=== PATIENT | male | born 1960 | race Caucasian/White ===

== ENCOUNTER 2019-03-29 08:23 | Emergency (ER) | payer MEDICAID ==
[~2019-03-29] VITALS: Ht 175.3 cm; Wt 112.0 kg
[2019-03-29 08:33] VITALS: BP 173/101
--- NOTE | 2019-03-29 09:07 | NUR ---
PT STATES HERE FOR RIGHT ANKLE PAIN POST FALL ON FRIDAY, SWELLING NOTED, PT STATES PAIN WITH MOVEMENT. DENIES MEDICAL HX AND DAILY MEDICATIONS.
[2019-03-29] MEDS ORDERED: IBUPROFEN 200 MG TABLET ONE (09:29)
[2019-03-29] MEDS ORDERED: IBUPROFEN 600 MG TABLET PO ONE (09:30)
[2019-03-29 10:22] LABS: BASOPHILS # (AUTO) 0.04 x10^3/uL (0-0.1); BASOPHILS % (AUTO) 0 % (0-1); EOSINOPHILS # (AUTO) 0.07 x10^3/uL (0-0.4); EOSINOPHILS % (AUTO) 1 % (1-7); LYMPHOCYTES # (AUTO) 1.85 x10^3/uL (1-3.4); LYMPHOCYTES % (AUTO) 18 % (22-44); MD NO; MEAN CORPUSCULAR HEMOGLOBIN 31.4 pg (27.5-34.5); MEAN CORPUSCULAR HGB CONC 33.3 g/dL (33.2-36.2); MEAN CORPUSCULAR VOLUME 94.2 fL (81-97); MEAN PLATELET VOLUME 7.8 fL (7.4-10.4); MONOCYTES # (AUTO) 0.62 x10^3/uL (0.2-0.8); MONOCYTES % (AUTO) 6 % (2-9); NEUTROPHILS # (AUTO) 7.54 x10^3/uL (1.8-6.8); NEUTROPHILS % (AUTO) 75 % (42-75); PLATELET COUNT 273 x10^3/uL (130-400); RED BLOOD COUNT 5.36 x10^6/uL (4.38-5.82); RED CELL DISTRIBUTION WIDTH 13.1 % (9.4-14.8)
[2019-03-29 10:31] LABS: ANION GAP 4 mmol/L (5-15); CALCIUM 8.8 mg/dL (8.5-10.1); CHLORIDE 106 mmol/L (98-107); CREATININE 1.21 mg/dL (0.7-1.3)
--- NOTE | 2019-03-29 11:37 | NUR ---
Patient/Caregiver given discharge instructions and they have confirmed that they understand the instructions. Patient ambulatory with steady gait.
== END 2019-03-29 11:39 | disposition home or self-care (01) ==
LOC: ED 11:33
DX: S93.601A Unspecified sprain of right foot, initial encounter (principal); L03.115 Cellulitis of right lower limb; B35.3 Tinea pedis; Z90.49 Acquired absence of other specified parts of digestive tract; M79.671 Pain in right foot; F17.200 Nicotine dependence, unspecified, uncomplicated; X50.1XXA Overexertion from prolonged static or awkward postures, initial encounter; Y93.89 Activity, other specified; Y92.410 Unspecified street and highway as the place of occurrence of the external cause; Y99.8 Other external cause status
CPT/HCPCS: 36415; 80048; 85025; 99284

== ENCOUNTER 2019-05-13 15:28 | Emergency (ER) | payer MEDICAID ==
[~2019-05-13] VITALS: Ht 175.3 cm; Wt 111.2 kg
[2019-05-13 15:54] VITALS: BP 143/96
[2019-05-13] MEDS ORDERED: CLINDAMYCIN 300 MG CAPSULE PO ONE (17:30)
[2019-05-13] MEDS ORDERED: IBUPROFEN 200 MG TABLET PO ONE (17:30)
[2019-05-13] MEDS ORDERED: IBUPROFEN 200 MG TABLET ONE ×2 (17:30→17:36)
[2019-05-13] MEDS ORDERED: CLINDAMYCIN 300 MG CAPSULE ONE (17:31)
== END 2019-05-13 17:41 | disposition home or self-care (01) ==
LOC: ED 17:15
DX: L03.115 Cellulitis of right lower limb (principal); B35.3 Tinea pedis; F17.200 Nicotine dependence, unspecified, uncomplicated
CPT/HCPCS: 99283

== ENCOUNTER 2019-06-09 14:28 | Inpatient (IN) | payer MEDICAID ==
[~2019-06-09] VITALS: Ht 175.3 cm; Wt 110.0 kg
[2019-06-09] MEDS: NITROGLYCERIN SINGLE TAB 0.4 MG SL PRN ×3 (14:44→14:52)
--- NOTE | 2019-06-09 14:50 | NUR ---
[id number] code cardiac paged / cardiology paged and in department/ chemical laboratory scientist called and are aware of pt
--- NOTE | 2019-06-09 14:50 | NUR ---
THIS IS A 58 YEAR OLD MALE WHO C/O OF RIGHT UPPER CHEST PRESSURE RADIATING TO JAW AND SHOULDERS FOR ABOUT 15 MINUTES. PT DENIES ANY MEDICAL HISTORY. PT IS HAVING A DE, CODE CARDIAC CALLED. PT PLACED ON AIRPORT OPERATIONS OFFICER, ST ELEVATION, IVS STARTED, CONTINOUS SP02 AT 97%, AND CYCLE VS. CONSENT SIGNED.
[2019-06-09] MEDS ORDERED: TICAGRELOR 90 MG TABLET ONE (14:51)
[2019-06-09] MEDS ORDERED: LIDOCAINE 1%, 20ML ONE (14:51)
[2019-06-09] MEDS ORDERED: MIDAZOLAM 1 MG/ML, 5ML ONE (14:51)
[2019-06-09] MEDS ORDERED: BIVALIRUDIN 250 MG ONE ×2 (14:51→15:30)
[2019-06-09] MEDS ORDERED: FENTANYL PF 100 MCG/2ML ONE (14:51)
--- NOTE | 2019-06-09 14:54 | NUR ---
PT TO SPIKE MACHINE OPERATOR
[2019-06-09] MEDS ORDERED: METOPROLOL 1 MG/ML, 5ML IVPush ONE (15:00)
[2019-06-09] MEDS ORDERED: SODIUM CHLORIDE FLUSH 10ML SYR IVF PRN (15:00)
[2019-06-09] MEDS ORDERED: ASPIRIN 325 MG TABLET EC ONE (15:03)
[2019-06-09] MEDS ORDERED: METOPROLOL 1 MG/ML, 5ML ONE (15:04)
--- NOTE | 2019-06-09 15:05 | NUR ---
PT REC 3 SL NITRO IN ED AND 5 MG METOPROLOL ENROUTE TO CATH PT REPORTS NO CP SKIN IS NOW WARM AND DRY REMAINS A04
[2019-06-09 15:06] LABS: BASOPHILS # (AUTO) 0.05 x10^3/uL (0-0.1); BASOPHILS % (AUTO) 0 % (0-1); EOSINOPHILS # (AUTO) 0.15 x10^3/uL (0-0.4); EOSINOPHILS % (AUTO) 1 % (1-7); LYMPHOCYTES # (AUTO) 2.79 x10^3/uL (1-3.4); LYMPHOCYTES % (AUTO) 22 % (22-44); MD NO; MEAN CORPUSCULAR HGB CONC 32.7 g/dL (33.2-36.2); MEAN CORPUSCULAR VOLUME 94.9 fL (81-97); MEAN PLATELET VOLUME 7.9 fL (7.4-10.4); MONOCYTES # (AUTO) 0.94 x10^3/uL (0.2-0.8); MONOCYTES % (AUTO) 7 % (2-9); NEUTROPHILS # (AUTO) 8.89 x10^3/uL (1.8-6.8); NEUTROPHILS % (AUTO) 69 % (42-75); PLATELET COUNT 305 x10^3/uL (130-400); RED BLOOD COUNT 5.87 x10^6/uL (4.38-5.82); RED CELL DISTRIBUTION WIDTH 12.8 % (9.4-14.8)
--- NOTE | 2019-06-09 15:06 | NUR ---
LATE NOTE, PT STATES HE TOOK ASA PRIOR, WHEN UP TO PLUG WIRER, PT STATES HE TOOK AN ALIVE. PLUG WIRER NOTIFIED.
[2019-06-09 15:45] VITALS: BP 122/83
[2019-06-09 15:45] LABS: INTERNATIONAL NORMALIZED RATIO 0.89 (0.93-1.1); PROTHROMBIN TIME 9.4 Seconds (9.6-11.5)
[2019-06-09] MEDS ORDERED: BIVALIRUDIN 250 MG in SODIUM CHLORIDE 0.9% 50 ML IV SCH (16:00)
[2019-06-09] MEDS ORDERED: GLUCAGON 1 MG IM PRN (16:30)
[2019-06-09] MEDS: INSULIN LISPRO 100 UNITS/ML, PEN SQ-INSULIN SCH ×2 (16:30→21:38)
[2019-06-09] MEDS ORDERED: hydrALAzine 20 MG/ML, 1ML IV PRN (16:30)
[2019-06-09] MEDS ORDERED: DEXTROSE 4 GM TAB.CHEW PO PRN (16:30)
[2019-06-09] MEDS ORDERED: ONDANSETRON 2MG/ML, 2ML IVPush PRN (16:30)
[2019-06-09] MEDS ORDERED: DEXTROSE 50%, 50ML SYRINGE IVPush PRN (16:30)
[2019-06-09 17:13] LABS: FREE T4 (FREE THYROXINE) 0.86 ng/dL (0.76-1.46)
[2019-06-09] MEDS: SODIUM CHLORIDE 0.9% 1,000 ML IV SCH (17:13)
[2019-06-09 17:26] LABS: HEMOGLOBIN A1C 6.6 % (4.2-6.3)
[2019-06-09] MEDS: ACETAMINOPHEN 325 MG TABLET PO PRN (19:03)
[2019-06-09] MEDS: SODIUM CHLORIDE FLUSH 10ML SYR IVF SCH (21:30)
[2019-06-09] MEDS: ATORVASTATIN 80 MG TABLET PO SCH (21:30)
[2019-06-09] MEDS: TICAGRELOR 90 MG TABLET PO SCH (21:30)
[2019-06-09] MEDS: FAMOTIDINE 20 MG TABLET PO SCH (21:30)
[2019-06-09] MEDS: NICOTINE 7 MG/24 HR PATCH.TD24 TD SCH (21:30)
[2019-06-10] MEDS: SODIUM CHLORIDE 0.9% 1,000 ML IV SCH ×2 (00:57→07:38)
[2019-06-10 03:33] LABS: BASOPHILS # (AUTO) 0.03 x10^3/uL (0-0.1); BASOPHILS % (AUTO) 0 % (0-1); EOSINOPHILS # (AUTO) 0.18 x10^3/uL (0-0.4); EOSINOPHILS % (AUTO) 2 % (1-7); LYMPHOCYTES # (AUTO) 2.12 x10^3/uL (1-3.4); LYMPHOCYTES % (AUTO) 18 % (22-44); MD NO; MEAN CORPUSCULAR HEMOGLOBIN 31.7 pg (27.5-34.5); MEAN CORPUSCULAR HGB CONC 33.4 g/dL (33.2-36.2); MEAN CORPUSCULAR VOLUME 94.9 fL (81-97); MONOCYTES # (AUTO) 0.73 x10^3/uL (0.2-0.8); MONOCYTES % (AUTO) 6 % (2-9); NEUTROPHILS % (AUTO) 74 % (42-75); PLATELET COUNT 275 x10^3/uL (130-400); RED BLOOD COUNT 5.28 x10^6/uL (4.38-5.82); RED CELL DISTRIBUTION WIDTH 13.1 % (9.4-14.8)
[2019-06-10 03:47] LABS: ALANINE AMINOTRANSFERASE 66 U/L (12-78); ALBUMIN 2.8 g/dL (3.4-5.0); ANION GAP 6 mmol/L (5-15); CALCIUM 8.2 mg/dL (8.5-10.1); CHLORIDE 108 mmol/L (98-107); CREATININE 0.96 mg/dL (0.7-1.3)
[2019-06-10 03:50] LABS: ALKALINE PHOSPHATASE 89 U/L (45-117); BILIRUBIN,TOTAL 0.7 mg/dL (0.2-1.0); TOTAL PROTEIN 6.5 g/dL (6.4-8.2)
[2019-06-10 03:59] LABS: CHOLESTEROL, TOTAL 167 mg/dL (140-239); TRIGLYCERIDES 359 mg/dL (50-200); VLDL CHOLESTEROL 72 mg/dL (0-25)
[2019-06-10 04:00] VITALS: BP 144/98
[2019-06-10 04:17] LABS: CHOL/HDL RATIO 5.8; HDL CHOL % 17 % (26-37); HDL CHOLESTEROL (DIRECT) 29 mg/dL (40-60); LDL CHOLESTEROL,CALCULATED 66 mg/dL (54-169); LDL/HDL RATIO 2.3 (0.5-3.0)
[2019-06-10] MEDS: ACETAMINOPHEN 325 MG TABLET PO PRN ×3 (04:19→19:39)
[2019-06-10] MEDS: ASPIRIN 81 MG TABLET EC PO SCH (05:59)
[2019-06-10] MEDS: METOPROLOL SUCCINATE 25 MG TAB.ER.24H PO SCH (05:59)
[2019-06-10] MEDS: INSULIN LISPRO 100 UNITS/ML, PEN SQ-INSULIN SCH ×4 (05:59→21:58)
[2019-06-10] MEDS: TICAGRELOR 90 MG TABLET PO SCH ×2 (08:48→21:58)
[2019-06-10] MEDS: LISINOPRIL 5 MG TABLET PO SCH ×2 (08:48→21:58)
[2019-06-10] MEDS: FAMOTIDINE 20 MG TABLET PO SCH ×2 (08:49→21:58)
[2019-06-10] MEDS: SODIUM CHLORIDE FLUSH 10ML SYR IVF SCH ×2 (08:50→21:58)
[2019-06-10] MEDS: FENOFIBRATE 145 MG TABLET PO SCH (08:50)
[2019-06-10] MEDS: SENNA/DOCUSATE TABLET PO SCH (08:50)
[2019-06-10] MEDS ORDERED: LISINOPRIL 5 MG TABLET PO ONE (09:00)
[2019-06-10] MEDS ORDERED: ASPIRIN 81 MG TABLET EC PO SCH (09:00)
[2019-06-10] MEDS ORDERED: POTASSIUM CHLORIDE 20 MEQ TAB.ER.PRT PO ONE (11:30)
[2019-06-10 12:57] VITALS: BP 129/82
[2019-06-10] MEDS: ENOXAPARIN 40 MG/0.4 ML SQ SCH (16:54)
[2019-06-10 19:48] VITALS: BP 165/115
[2019-06-10 19:58] VITALS: BP 150/87
[2019-06-10] MEDS ORDERED: NITROGLYCERIN 0.4 MG/SPRAY SL PRN (20:00)
[2019-06-10] MEDS: NITROGLYCERIN 0.4 MG BOTTLE (25 TABS) SL PRN ×2 (20:05→20:10)
[2019-06-10 20:07] VITALS: BP 122/81
[2019-06-10] MEDS: NICOTINE 7 MG/24 HR PATCH.TD24 TD SCH (20:11)
[2019-06-10 20:19] VITALS: BP 143/80
[2019-06-10] MEDS: ATORVASTATIN 80 MG TABLET PO SCH (21:58)
[2019-06-11 03:59] VITALS: BP 135/98
[2019-06-11 04:55] LABS: MEAN CORPUSCULAR HEMOGLOBIN 31.4 pg (27.5-34.5); MEAN CORPUSCULAR HGB CONC 33.4 g/dL (33.2-36.2); PLATELET COUNT 258 x10^3/uL (130-400); RED BLOOD COUNT 5.41 x10^6/uL (4.38-5.82); RED CELL DISTRIBUTION WIDTH 13.1 % (9.4-14.8)
[2019-06-11 05:04] LABS: ANION GAP 3 mmol/L (5-15); CALCIUM 9.1 mg/dL (8.5-10.1); CHLORIDE 105 mmol/L (98-107); CREATININE 1.25 mg/dL (0.7-1.3)
[2019-06-11 05:24] VITALS: BP 129/90
[2019-06-11] MEDS: ASPIRIN 81 MG TABLET EC PO SCH (05:25)
[2019-06-11] MEDS: METOPROLOL SUCCINATE 25 MG TAB.ER.24H PO SCH (05:25)
[2019-06-11 05:45] LABS: BASOPHILS # (AUTO) 0.02 x10^3/uL (0-0.1); BASOPHILS % (AUTO) 0 % (0-1); EOSINOPHILS # (AUTO) 0.06 x10^3/uL (0-0.4); EOSINOPHILS % (AUTO) 0 % (1-7); LYMPHOCYTES # (AUTO) 1.58 x10^3/uL (1-3.4); LYMPHOCYTES % (AUTO) 11 % (22-44); MD SCAN; MONOCYTES % (AUTO) 10 % (2-9); NEUTROPHILS # (AUTO) 11.26 x10^3/uL (1.8-6.8); NEUTROPHILS % (AUTO) 79 % (42-75)
[2019-06-11] MEDS: ACETAMINOPHEN 325 MG TABLET PO PRN ×3 (06:58→22:11)
[2019-06-11] MEDS: INSULIN LISPRO 100 UNITS/ML, PEN SQ-INSULIN SCH ×4 (07:45→21:11)
[2019-06-11] MEDS: TICAGRELOR 90 MG TABLET PO SCH ×2 (07:46→21:07)
[2019-06-11] MEDS: FAMOTIDINE 20 MG TABLET PO SCH ×2 (07:46→21:07)
[2019-06-11] MEDS: SENNA/DOCUSATE TABLET PO SCH (07:46)
[2019-06-11] MEDS: FENOFIBRATE 145 MG TABLET PO SCH (07:46)
[2019-06-11] MEDS: LISINOPRIL 5 MG TABLET PO SCH ×2 (07:47→21:07)
[2019-06-11] MEDS: SODIUM CHLORIDE FLUSH 10ML SYR IVF SCH ×2 (07:47→21:00)
[2019-06-11 08:39] VITALS: BP 110/71
[2019-06-11] MEDS ORDERED: COLCHICINE 0.6 MG CAPSULE PO ONE (12:00)
[2019-06-11 13:05] VITALS: BP 104/71
[2019-06-11] MEDS: MORPHINE SULFATE 4 MG/ML, 1ML IVPush PRN ×4 (14:04→21:10)
[2019-06-11] MEDS: ENOXAPARIN 40 MG/0.4 ML SQ SCH (16:14)
[2019-06-11] MEDS: NICOTINE 7 MG/24 HR PATCH.TD24 TD SCH (20:00)
[2019-06-11] MEDS: COLCHICINE 0.6 MG CAPSULE PO SCH (21:07)
[2019-06-11] MEDS: LINEZOLID 600 MG TABLET PO SCH (21:07)
[2019-06-11] MEDS: ATORVASTATIN 80 MG TABLET PO SCH (21:07)
[2019-06-11 21:14] VITALS: BP 121/87
[2019-06-12 02:21] VITALS: BP 105/65
[2019-06-12 04:58] LABS: MEAN CORPUSCULAR HEMOGLOBIN 31.7 pg (27.5-34.5); MEAN CORPUSCULAR HGB CONC 33.4 g/dL (33.2-36.2); MEAN PLATELET VOLUME 8.7 fL (7.4-10.4); PLATELET COUNT 261 x10^3/uL (130-400); RED BLOOD COUNT 5.23 x10^6/uL (4.38-5.82); RED CELL DISTRIBUTION WIDTH 13.3 % (9.4-14.8)
[2019-06-12 05:09] LABS: ALBUMIN 2.6 g/dL (3.4-5.0); ANION GAP 5 mmol/L (5-15); CALCIUM 8.9 mg/dL (8.5-10.1); CHLORIDE 107 mmol/L (98-107)
[2019-06-12 05:13] LABS: ALANINE AMINOTRANSFERASE 39 U/L (12-78); ALKALINE PHOSPHATASE 86 U/L (45-117); BILIRUBIN,TOTAL 1.1 mg/dL (0.2-1.0); CREATININE 1.17 mg/dL (0.7-1.3); TOTAL PROTEIN 7.2 g/dL (6.4-8.2)
[2019-06-12] MEDS: METOPROLOL SUCCINATE 25 MG TAB.ER.24H PO SCH (05:16)
[2019-06-12] MEDS: ASPIRIN 81 MG TABLET EC PO SCH (05:16)
[2019-06-12 05:49] LABS: BASOPHILS # (AUTO) 0.07 x10^3/uL (0-0.1); BASOPHILS % (AUTO) 1 % (0-1); EOSINOPHILS # (AUTO) 0.18 x10^3/uL (0-0.4); EOSINOPHILS % (AUTO) 1 % (1-7); LYMPHOCYTES # (AUTO) 1.92 x10^3/uL (1-3.4); LYMPHOCYTES % (AUTO) 13 % (22-44); MD SCAN; MONOCYTES # (AUTO) 1.55 x10^3/uL (0.2-0.8); MONOCYTES % (AUTO) 11 % (2-9); NEUTROPHILS # (AUTO) 11.05 x10^3/uL (1.8-6.8); NEUTROPHILS % (AUTO) 75 % (42-75)
[2019-06-12] MEDS: INSULIN LISPRO 100 UNITS/ML, PEN SQ-INSULIN SCH ×4 (07:00→21:00)
[2019-06-12] MEDS: FENOFIBRATE 145 MG TABLET PO SCH (07:52)
[2019-06-12] MEDS: FAMOTIDINE 20 MG TABLET PO SCH ×2 (07:52→21:35)
[2019-06-12] MEDS: LISINOPRIL 5 MG TABLET PO SCH ×2 (07:52→21:35)
[2019-06-12] MEDS: COLCHICINE 0.6 MG CAPSULE PO SCH ×2 (07:52→21:35)
[2019-06-12] MEDS: LINEZOLID 600 MG TABLET PO SCH ×2 (07:52→21:35)
[2019-06-12] MEDS: SENNA/DOCUSATE TABLET PO SCH (07:55)
[2019-06-12] MEDS: TICAGRELOR 90 MG TABLET PO SCH ×2 (07:55→21:35)
[2019-06-12] MEDS: SODIUM CHLORIDE FLUSH 10ML SYR IVF SCH ×2 (07:56→21:35)
[2019-06-12 08:20] VITALS: BP 96/62
[2019-06-12 12:40] VITALS: BP 110/76
[2019-06-12] MEDS: metFORMIN 500 MG TABLET PO SCH (16:19)
[2019-06-12] MEDS: ENOXAPARIN 40 MG/0.4 ML SQ SCH (16:20)
[2019-06-12] MEDS: ACETAMINOPHEN 325 MG TABLET PO PRN (16:41)
[2019-06-12 20:46] VITALS: BP 99/68
[2019-06-12] MEDS: NICOTINE 7 MG/24 HR PATCH.TD24 TD SCH (20:56)
[2019-06-12 21:34] VITALS: BP 109/73
[2019-06-12] MEDS: ATORVASTATIN 80 MG TABLET PO SCH (21:35)
[2019-06-12 23:39] VITALS: BP 99/66
[2019-06-13 02:22] VITALS: BP 122/75
[2019-06-13 05:41] LABS: BASOPHILS # (AUTO) 0.04 x10^3/uL (0-0.1); BASOPHILS % (AUTO) 0 % (0-1); EOSINOPHILS # (AUTO) 0.28 x10^3/uL (0-0.4); EOSINOPHILS % (AUTO) 3 % (1-7); LYMPHOCYTES # (AUTO) 1.58 x10^3/uL (1-3.4); LYMPHOCYTES % (AUTO) 15 % (22-44); MD NO; MEAN CORPUSCULAR HEMOGLOBIN 31.6 pg (27.5-34.5); MEAN CORPUSCULAR HGB CONC 33.3 g/dL (33.2-36.2); MEAN PLATELET VOLUME 8.7 fL (7.4-10.4); MONOCYTES % (AUTO) 10 % (2-9); NEUTROPHILS # (AUTO) 7.46 x10^3/uL (1.8-6.8); NEUTROPHILS % (AUTO) 72 % (42-75); PLATELET COUNT 263 x10^3/uL (130-400); RED BLOOD COUNT 5.08 x10^6/uL (4.38-5.82); RED CELL DISTRIBUTION WIDTH 13.7 % (9.4-14.8)
[2019-06-13 05:45] VITALS: BP 114/73
[2019-06-13] MEDS: METOPROLOL SUCCINATE 25 MG TAB.ER.24H PO SCH (05:46)
[2019-06-13] MEDS: ASPIRIN 81 MG TABLET EC PO SCH (05:46)
[2019-06-13] MEDS: INSULIN LISPRO 100 UNITS/ML, PEN SQ-INSULIN SCH ×2 (07:00→11:00)
[2019-06-13 07:53] VITALS: BP 118/81
[2019-06-13] MEDS: SENNA/DOCUSATE TABLET PO SCH (09:00)
[2019-06-13] MEDS: metFORMIN 500 MG TABLET PO SCH ×2 (09:07→16:50)
[2019-06-13] MEDS: SODIUM CHLORIDE FLUSH 10ML SYR IVF SCH (09:07)
[2019-06-13] MEDS: TICAGRELOR 90 MG TABLET PO SCH (09:08)
[2019-06-13] MEDS: FAMOTIDINE 20 MG TABLET PO SCH (09:09)
[2019-06-13] MEDS: ACETAMINOPHEN 325 MG TABLET PO PRN (09:09)
[2019-06-13] MEDS: LISINOPRIL 5 MG TABLET PO SCH (09:09)
[2019-06-13] MEDS: COLCHICINE 0.6 MG CAPSULE PO SCH (09:09)
[2019-06-13] MEDS: FENOFIBRATE 145 MG TABLET PO SCH (09:10)
[2019-06-13] MEDS: LINEZOLID 600 MG TABLET PO SCH (09:10)
[2019-06-13 12:45] VITALS: BP 119/83
[2019-06-13] MEDS ORDERED: FENO145T30 PO (14:09)
[2019-06-13] MEDS ORDERED: LISI5TAB7 PO (14:09)
[2019-06-13] MEDS ORDERED: METF500T PO (14:09)
[2019-06-13] MEDS ORDERED: ATOR-2 PO (14:09)
[2019-06-13] MEDS ORDERED: CLOP75TA PO (14:09)
[2019-06-13] MEDS ORDERED: METO25TA91 PO (14:09)
[2019-06-13] MEDS ORDERED: RIVA20TA PO (14:59)
[2019-06-13] MEDS ORDERED: CLOPIDOGREL 75 MG TABLET ONE (16:30)
[2019-06-13] MEDS ORDERED: RIVAROXABAN 20 MG TABLET ONE (16:30)
[2019-06-13] MEDS ORDERED: RIVAROXABAN 20 MG TABLET PO SCH (17:00)
[2019-06-14] MEDS ORDERED: CLOPIDOGREL 75 MG TABLET PO SCH (09:00)
== END 2019-06-13 17:39 | disposition home or self-care (01) | DRG 247 ==
LOC: ED 14:45 → EDIP 14:52 → CCU 15:39 → 5SO 06-10 12:48
PROVIDERS: ADMIT Internal Medicine Cardiovascular Disease; ATTEND Hospitalist
PROC: 4A023N7 Measurement of Cardiac Sampling and Pressure, Left Heart, Percutaneous Approach (ICD-10-PCS; principal; 2019-06-09)
PROC: 027034Z Dilation of Coronary Artery, One Artery with Drug-eluting Intraluminal Device, Percutaneous Approach (ICD-10-PCS; 2019-06-09)
PROC: B211YZZ Fluoroscopy of Multiple Coronary Arteries using Other Contrast (ICD-10-PCS; 2019-06-09)
PROC: B215YZZ Fluoroscopy of Left Heart using Other Contrast (ICD-10-PCS; 2019-06-09)
DX: I21.09 ST elevation (STEMI) myocardial infarction involving other coronary artery of anterior wall (principal); I50.42 Chronic combined systolic (congestive) and diastolic (congestive) heart failure; D72.829 Elevated white blood cell count, unspecified; D75.1 Secondary polycythemia; E11.65 Type 2 diabetes mellitus with hyperglycemia; E78.1 Pure hyperglyceridemia; E78.5 Hyperlipidemia, unspecified; E87.6 Hypokalemia; F17.210 Nicotine dependence, cigarettes, uncomplicated; I11.0 Hypertensive heart disease with heart failure; I25.10 Atherosclerotic heart disease of native coronary artery without angina pectoris; K76.0 Fatty (change of) liver, not elsewhere classified; Z79.899 Other long term (current) drug therapy; Z82.49 Family history of ischemic heart disease and other diseases of the circulatory system; Z59.0 Homelessness; Z83.3 Family history of diabetes mellitus; I21.29 ST elevation (STEMI) myocardial infarction involving other sites
CPT/HCPCS: 36415; 36600; 93458; 99285; C8929; J3490; 71045; 76705; 80047; 80048; 80053; 80061; 80074; 82803; 82962; 83036; 83735; 84100; 84439; 84443; 84484; 84550; 85025; 85610; 85730; 87081; 93005; 93321; 93325; 99156; 99157; C1760; C1769; C1894; G0378; J0583; J1650; J2250; J3010; Q9957; C1725; C1874; C1887; C8924; J1815; J2270; Q9967

== ENCOUNTER 2019-07-15 09:27 | Inpatient (IN) | payer MEDICAID ==
[~2019-07-15] VITALS: Ht 175.3 cm; Wt 110.8 kg
[~2019-07-15 09:27] MED LIST: ATOR-2 PO; CLOP75TA PO; FENO145T30 PO; LISI5TAB7 PO; METF500T PO; METO25TA91 PO; RIVA20TA PO
[2019-07-15] MEDS ORDERED: SODIUM CHLORIDE FLUSH 10ML SYR IVF ONE (10:00)
[2019-07-15 10:28] LABS: BASOPHILS # (AUTO) 0.01 x10^3/uL (0-0.1); BASOPHILS % (AUTO) 0 % (0-1); EOSINOPHILS # (AUTO) 0.06 x10^3/uL (0-0.4); EOSINOPHILS % (AUTO) 1 % (1-7); LYMPHOCYTES # (AUTO) 1.08 x10^3/uL (1-3.4); LYMPHOCYTES % (AUTO) 8 % (22-44); MD NO; MEAN CORPUSCULAR HEMOGLOBIN 30.8 pg (27.5-34.5); MEAN CORPUSCULAR HGB CONC 33.5 g/dL (33.2-36.2); MEAN PLATELET VOLUME 7.4 fL (7.4-10.4); MONOCYTES # (AUTO) 0.97 x10^3/uL (0.2-0.8); MONOCYTES % (AUTO) 8 % (2-9); NEUTROPHILS % (AUTO) 84 % (42-75); PLATELET COUNT 370 x10^3/uL (130-400); RED BLOOD COUNT 5.05 x10^6/uL (4.38-5.82); RED CELL DISTRIBUTION WIDTH 12.7 % (9.4-14.8)
[2019-07-15 10:38] LABS: INTERNATIONAL NORMALIZED RATIO 1.15 (0.93-1.1)
--- NOTE | 2019-07-15 10:40 | NUR ---
PT HAS CO OF COUGH W CHEST PAIN IN LEFT RIBS, STARTED 2 DAYS AGO. "I WAS AFRAID I WAS GOING TO DISPLACE MY STENT", STENT PLACED LAST MONTH. PT ON FINISHED GARMENT INSPECTOR, VS STABLE, TACHY 117. EKG IN PROCESS. DENIES, N/V/D
[2019-07-15 10:41] LABS: ALBUMIN 2.9 g/dL (3.4-5.0); ANION GAP 10 mmol/L (5-15); CALCIUM 8.3 mg/dL (8.5-10.1); CHLORIDE 103 mmol/L (98-107)
[2019-07-15 10:45] LABS: TROPONIN I < 0.015 ng/mL (0.000-0.045)
[2019-07-15] MEDS ORDERED: SODIUM CHLORIDE 0.9% 1,000ML IVBOLUS ONE (11:00)
--- NOTE | 2019-07-15 11:03 | NUR ---
FLUIDS INFUSING. CALL LIGHT GIVEN TO PT
--- NOTE | 2019-07-15 11:57 | NUR ---
NO NEEDS AT THIS TIME. LAB VALUES PENDING. VS STABLE
--- NOTE | 2019-07-15 12:57 | NUR ---
PA AT BEDSIDE DISCUSSING POC FOR CTA.
[2019-07-15] MEDS ORDERED: OMNIPAQUE 350 MG/ML, 100ML BOTTLE ONE (13:29)
--- NOTE | 2019-07-15 14:19 | NUR ---
THROUGHPUT RN: [facility] SPOKE W/ ROLF FROM [facility] WHO DECLINED TRANSFER. SPOKE W/ BROOKE FROM [facility] WHO DECLINED TRANSFER. PSN FAXED TO [phone]. CONFIRMATION RECEIVED.
--- NOTE | 2019-07-15 14:32 | NUR ---
ANSLEY RN: VASCULAR NOTIFIED OF STATE NEED FOR ECHO.
[2019-07-15] MEDS ORDERED: POLYETHYLENE GLYCOL 17 GM PACKET PO PRN (15:30)
[2019-07-15] MEDS ORDERED: GUAIFENESIN/DM 200-20MG, 10ML UDC PO PRN (15:30)
[2019-07-15] MEDS ORDERED: hydrALAzine 20 MG/ML, 1ML IVPush PRN (15:30)
[2019-07-15] MEDS ORDERED: CALCIUM GLUCONATE 4.6 MEQ in SODIUM CHLORIDE 0.9% 50 ML IV ONE (15:30)
[2019-07-15] MEDS ORDERED: TRAZODONE 50MG TABLET PO PRN (15:30)
[2019-07-15] MEDS ORDERED: BUTALB/APAP/CAFFEINE 50MG/325MG/40MG PO PRN (15:30)
[2019-07-15] MEDS ORDERED: ONDANSETRON ODT 4 MG PO PRN (15:30)
[2019-07-15] MEDS ORDERED: POTASSIUM CHLORIDE 20 MEQ in SODIUM CHLORIDE 0.9% 250 ML IV ONE (15:30)
[2019-07-15] MEDS ORDERED: ONDANSETRON 2MG/ML, 2ML IVPush PRN (15:30)
[2019-07-15] MEDS: ACETAMINOPHEN 325 MG TABLET PO PRN ×2 (15:52→21:40)
[2019-07-15 15:55] VITALS: BP 128/82
[2019-07-15] MEDS ORDERED: RIVAROXABAN 20 MG TABLET PO SCH (16:30)
[2019-07-15] MEDS ORDERED: metFORMIN 500 MG TABLET PO SCH (17:00)
[2019-07-15] MEDS: INSULIN LISPRO 100 UNITS/ML, PEN SQ-INSULIN SCH ×2 (17:22→21:40)
[2019-07-15 18:54] LABS: RAPID INFLUENZA A Negative (Negative); RAPID INFLUENZA B Negative (Negative)
[2019-07-15 19:56] VITALS: BP 148/76
[2019-07-15] MEDS: LISINOPRIL 5 MG TABLET PO SCH (20:34)
[2019-07-15] MEDS ORDERED: ATORVASTATIN 80 MG TABLET PO SCH (21:00)
[2019-07-16 03:00] VITALS: BP 129/87
[2019-07-16 04:52] LABS: BASOPHILS # (AUTO) 0.06 x10^3/uL (0-0.1); BASOPHILS % (AUTO) 1 % (0-1); EOSINOPHILS # (AUTO) 0.16 x10^3/uL (0-0.4); EOSINOPHILS % (AUTO) 1 % (1-7); LYMPHOCYTES # (AUTO) 1.28 x10^3/uL (1-3.4); LYMPHOCYTES % (AUTO) 10 % (22-44); MD NO; MEAN CORPUSCULAR HEMOGLOBIN 31.1 pg (27.5-34.5); MEAN CORPUSCULAR HGB CONC 33.1 g/dL (33.2-36.2); MEAN CORPUSCULAR VOLUME 93.8 fL (81-97); MONOCYTES % (AUTO) 10 % (2-9); NEUTROPHILS # (AUTO) 9.74 x10^3/uL (1.8-6.8); NEUTROPHILS % (AUTO) 78 % (42-75); PLATELET COUNT 349 x10^3/uL (130-400); RED BLOOD COUNT 4.49 x10^6/uL (4.38-5.82); RED CELL DISTRIBUTION WIDTH 12.9 % (9.4-14.8)
[2019-07-16 05:05] LABS: ANION GAP 5 mmol/L (5-15); CALCIUM 8.6 mg/dL (8.5-10.1); CHLORIDE 103 mmol/L (98-107); CREATININE 0.99 mg/dL (0.7-1.3)
[2019-07-16] MEDS ORDERED: METOPROLOL SUCCINATE 25 MG TAB.ER.24H PO SCH (06:00)
[2019-07-16] MEDS: INSULIN LISPRO 100 UNITS/ML, PEN SQ-INSULIN SCH ×2 (07:03→11:40)
[2019-07-16 07:38] VITALS: BP 135/86
[2019-07-16] MEDS: LISINOPRIL 5 MG TABLET PO SCH (08:43)
[2019-07-16] MEDS ORDERED: CLOPIDOGREL 75 MG TABLET PO SCH (09:00)
[2019-07-16] MEDS ORDERED: FENOFIBRATE 145 MG TABLET PO SCH (09:00)
[2019-07-16] MEDS: ACETAMINOPHEN 325 MG TABLET PO PRN (11:03)
== END 2019-07-16 11:53 | disposition home or self-care (01) | DRG 187 ==
LOC: ED 10:52 → EDIP 14:27 → 5SO 15:40 → DCLOUNGE 07-16 11:39
PROVIDERS: ADMIT Family Medicine; ATTEND Family Medicine
DX: J90 Pleural effusion, not elsewhere classified (principal); I31.3 Pericardial effusion (noninflammatory); E46 Unspecified protein-calorie malnutrition; E87.1 Hypo-osmolality and hyponatremia; E11.65 Type 2 diabetes mellitus with hyperglycemia; Z68.36 Body mass index [BMI] 36.0-36.9, adult; E78.00 Pure hypercholesterolemia, unspecified; E78.5 Hyperlipidemia, unspecified; E83.51 Hypocalcemia; E87.6 Hypokalemia; F17.210 Nicotine dependence, cigarettes, uncomplicated; I10 Essential (primary) hypertension; I25.10 Atherosclerotic heart disease of native coronary artery without angina pectoris; I25.2 Old myocardial infarction; I51.3 Intracardiac thrombosis, not elsewhere classified; I71.2 Thoracic aortic aneurysm, without rupture; J06.9 Acute upper respiratory infection, unspecified; M19.90 Unspecified osteoarthritis, unspecified site; Z79.01 Long term (current) use of anticoagulants; Z95.5 Presence of coronary angioplasty implant and graft
CPT/HCPCS: 36415; 73080; 84145; 87400; C8929; 71046; 71275; 80048; 82040; 83735; 83880; 84100; 84484; 85025; 85379; 85610; 93005; G0378; J0610; J3480; Q9957; Q9967; J1815; J7030; J7050

== ENCOUNTER 2019-10-08 10:11 | Emergency (ER) | payer MEDICAID ==
[~2019-10-08] VITALS: Ht 175.3 cm; Wt 108.0 kg
[~2019-10-08 10:11] MED LIST changes: +FENO145T19 PO; -FENO145T30 PO
[2019-10-08 10:17] VITALS: BP 137/97
[2019-10-08] MEDS ORDERED: OXYcodone/APAP 5/325MG TABLET PO ONE (11:30)
--- NOTE | 2019-10-08 11:55 | NUR ---
THAI BANDAGE APPLIED. CMS INTACT. Patient/Caregiver given discharge instructions and they have confirmed that they understand the instructions. Patient ambulatory with steady gait USING CRUTCHES. PT LEFT WITH ALL PERSONAL BELONGINGS.
== END 2019-10-08 12:00 | disposition home or self-care (01) ==
LOC: ED 11:54
DX: S90.32XA Contusion of left foot, initial encounter (principal); I25.2 Old myocardial infarction; I10 Essential (primary) hypertension; E78.00 Pure hypercholesterolemia, unspecified; X58.XXXA Exposure to other specified factors, initial encounter; Y93.89 Activity, other specified; Y92.89 Other specified places as the place of occurrence of the external cause; Y99.8 Other external cause status
CPT/HCPCS: 99283

== ENCOUNTER 2020-08-02 02:24 | Emergency (ER) | payer MEDICAID ==
[~2020-08-02] VITALS: Ht 175.3 cm; Wt 112.9 kg
[2020-08-02 02:27] VITALS: BP 110/86
--- NOTE | 2020-08-02 03:00 | NUR ---
PT. TO ED TONIGHT WITH C/O SOB X 2 DAYS EVER SINCE METOPROLOL WAS CHANGED FROM 25MG TO 50MG. STATES "IT FEELS LIKE SOMEONE IS PUTTING A PLASTIC BACK OVER MY HEAD EVERY 10-15 SECONDS." RA SAT 95% AND GREATER. EKG DONE IN TRIAGE AND PRESENTED TO ERMD. CONTINUOUS PULSE OX, B/P, AND HEART MONITORS PLACED. DAGO TURNER IN TO EVAL PT. AND DISCUSS POC. PT. DOESN'T KNOW HIS MEDICATIONS; UNABLE TO COMPLETE MED REC. RECORDS REQUESTED FROM [facility] BUT [facility] IS ON DOWNTIME AND WE ARE UNABLE TO OBTAIN RECORDS AT THIS TIME.
[2020-08-02 03:12] LABS: BASOPHILS % (AUTO) 1 % (0-1); EOSINOPHILS % (AUTO) 2 % (1-7); LYMPHOCYTES % (AUTO) 25 % (22-44); MEAN CORPUSCULAR HEMOGLOBIN 31.4 pg (27.5-34.5); MEAN CORPUSCULAR HGB CONC 33.7 g/dL (33.2-36.2); MEAN PLATELET VOLUME 7.8 fL (7.4-10.4); MONOCYTES % (AUTO) 8 % (2-9); NEUTROPHILS % (AUTO) 64 % (42-75); PLATELET COUNT 323 x10^3/uL (130-400); RED CELL DISTRIBUTION WIDTH 13.9 % (9.4-14.8)
--- NOTE | 2020-08-02 03:13 | NUR ---
REPORT TO MARYCHUY CISNEROS TO ASSUME CARE OF PT.
[2020-08-02 03:18] LABS: MD NO
[2020-08-02 03:24] LABS: ALANINE AMINOTRANSFERASE 64 U/L (12-78); ALBUMIN 3.5 g/dL (3.4-5.0); ANION GAP 6 mmol/L (5-15); CHLORIDE 106 mmol/L (98-107); CREATININE 1.31 mg/dL (0.7-1.3)
[2020-08-02 03:29] LABS: ALKALINE PHOSPHATASE 102 U/L (45-117); BILIRUBIN,TOTAL 0.9 mg/dL (0.2-1.0); TOTAL PROTEIN 7.2 g/dL (6.4-8.2); TROPONIN I < 0.015 ng/mL (0.000-0.045)
--- NOTE | 2020-08-02 04:27 | NUR ---
DR GREENE AT BEDSIDE TO DISCUSS POC
--- NOTE | 2020-08-02 04:48 | NUR ---
PT SIGNED AMA FORM, EDUCATED ON ALL RISKS AND VERBALIZES UNDERSTANDING. PT STS WILL CALL DEHYDROGENATION SUPERVISOR THIS AM AND WILL RETURN IF SYMPTOMS WORSEN.
== END 2020-08-02 04:52 | disposition left against medical advice (07) ==
LOC: ED 03:27
DX: R06.00 Dyspnea, unspecified (principal); R07.89 Other chest pain; R79.9 Abnormal finding of blood chemistry, unspecified; I25.2 Old myocardial infarction; I11.0 Hypertensive heart disease with heart failure; I50.9 Heart failure, unspecified; I45.10 Unspecified right bundle-branch block; E78.00 Pure hypercholesterolemia, unspecified; Z90.89 Acquired absence of other organs
CPT/HCPCS: 36415; 71045; 80053; 83880; 84484; 85025; 93005; 99285

== ENCOUNTER 2020-09-23 01:05 | Emergency (ER) | payer MEDICAID ==
[~2020-09-23] VITALS: Ht 172.7 cm; Wt 116.0 kg
--- NOTE | 2020-09-23 01:54 | NUR ---
REPORT GIVEN TO MARYCHUY VAZQUEZ.
[2020-09-23] MEDS ORDERED: MORPHINE SULFATE 4 MG/ML, 1ML ONE (02:09)
[2020-09-23] MEDS ORDERED: ASPIRIN 81 MG TABLET CHEW ONE (02:09)
[2020-09-23 02:17] LABS: BASOPHILS % (AUTO) 0 % (0-1); EOSINOPHILS % (AUTO) 3 % (1-7); LYMPHOCYTES % (AUTO) 9 % (22-44); MEAN CORPUSCULAR HEMOGLOBIN 31.1 pg (27.5-34.5); MEAN CORPUSCULAR HGB CONC 33.7 g/dL (33.2-36.2); MEAN PLATELET VOLUME 8.5 fL (7.4-10.4); MONOCYTES % (AUTO) 19 % (2-9); NEUTROPHILS % (AUTO) 69 % (42-75); PLATELET COUNT 223 x10^3/uL (130-400); RED BLOOD COUNT 4.89 x10^6/uL (4.38-5.82); RED CELL DISTRIBUTION WIDTH 14.6 % (9.4-14.8)
[2020-09-23 02:18] LABS: MD NO
[2020-09-23 02:28] LABS: ALBUMIN 3.4 g/dL (3.4-5.0); ANION GAP 9 mmol/L (5-15); CALCIUM 8.7 mg/dL (8.5-10.1); CHLORIDE 108 mmol/L (98-107); CREATININE 1.25 mg/dL (0.7-1.3)
[2020-09-23] MEDS ORDERED: ASPIRIN 81 MG TABLET CHEW PO ONE (02:30)
[2020-09-23] MEDS ORDERED: MORPHINE SULFATE 4 MG/ML, 1ML IVPush PRN (02:30)
[2020-09-23 02:31] LABS: TROPONIN I 0.032 ng/mL (0.000-0.045)
--- NOTE | 2020-09-23 02:55 | NUR ---
PT UP TO RESTROOM WITHOUT COMPLICATIONS. VITAL SIGNS STABLE. UPDATED ON PLAN OF CARE. WILL CONTINUE TO MONITOR.
[2020-09-23] MEDS ORDERED: ONDANSETRON ODT 4 MG PO ONE (03:30)
--- NOTE | 2020-09-23 03:35 | NUR ---
PATIENT RESTING IN BED, NO NOTED NEEDS. VITAL SIGNS STABLE. WILL CONTINUE TO MONITOR.
[2020-09-23 03:43] VITALS: BP 115/80
[2020-09-23] MEDS ORDERED: BUMETANIDE 1 MG TABLET PO ONE (04:05)
--- NOTE | 2020-09-23 04:13 | NUR ---
PATIENT HAS BEEN CLEARED FOR DISCHARGE. NO NOTED ACUTE DISTRESS. PATIENT VERBALIZED UNDERSTANDING OF SELF CARE AND FOLLOW UP CARE AT HOME. PATIENT AMBULATORY TO DISCHARGE WITH BELONGINGS WITHOUT COMPLICATIONS.
== END 2020-09-23 04:15 | disposition home or self-care (01) ==
LOC: ED 02:01
DX: R06.00 Dyspnea, unspecified (principal); I45.10 Unspecified right bundle-branch block; I11.0 Hypertensive heart disease with heart failure; I50.9 Heart failure, unspecified; I21.9 Acute myocardial infarction, unspecified; R07.9 Chest pain, unspecified; I48.91 Unspecified atrial fibrillation; I25.10 Atherosclerotic heart disease of native coronary artery without angina pectoris; E78.00 Pure hypercholesterolemia, unspecified; Z79.01 Long term (current) use of anticoagulants; Z90.49 Acquired absence of other specified parts of digestive tract; Z87.891 Personal history of nicotine dependence; Z91.19 Patient's noncompliance with other medical treatment and regimen
CPT/HCPCS: 36415; 71045; 80048; 82040; 83880; 84484; 85025; 93005; 99285

== ENCOUNTER 2020-10-04 00:44 | Inpatient (IN) | payer MEDICAID ==
[~2020-10-04] VITALS: Ht 175.3 cm; Wt 114.0 kg
[2020-10-04] MEDS ORDERED: ASPIRIN 325 MG TABLET PO STA (01:18)
--- NOTE | 2020-10-04 01:19 | NUR ---
Code cardiac called.
[2020-10-04] MEDS ORDERED: ASPIRIN 325 MG TABLET ONE (01:21)
--- NOTE | 2020-10-04 01:22 | NUR ---
Aspirin administered per eMAR.
--- NOTE | 2020-10-04 01:29 | NUR ---
NITA swabbed and walked to lab.
--- NOTE | 2020-10-04 01:30 | NUR ---
2 PIV'S STARTED. PT ATTACHED TO PADS AND CODE CART AT BEDSIDE. PT IN SOME RESP DISTRESS BUT TOLERATING INTERVENTIONS WELL. LAB AT BEDSIDE FOR DRAW
[2020-10-04] MEDS ORDERED: ONDANSETRON 2MG/ML, 2ML ONE (01:34)
[2020-10-04] MEDS ORDERED: MORPHINE SULFATE 4 MG/ML, 1ML ONE (01:35)
[2020-10-04 01:38] LABS: BASOPHILS % (AUTO) 1 % (0-1); EOSINOPHILS % (AUTO) 0 % (1-7); LYMPHOCYTES % (AUTO) 14 % (22-44); MEAN CORPUSCULAR HEMOGLOBIN 30.6 pg (27.5-34.5); MONOCYTES % (AUTO) 9 % (2-9); NEUTROPHILS % (AUTO) 76 % (42-75); PLATELET COUNT 312 x10^3/uL (130-400); RED BLOOD COUNT 5.22 x10^6/uL (4.38-5.82); RED CELL DISTRIBUTION WIDTH 14.8 % (9.4-14.8)
[2020-10-04 01:39] LABS: MD NO
--- NOTE | 2020-10-04 01:40 | NUR ---
VERBAL ORDERS FOR MORPHINE 4 MG AND ZOFRAN 4 MG PER ER MD GREENE. PT MEDICATED.
--- NOTE | 2020-10-04 01:41 | NUR ---
PT PREPPED AND READY FOR PRODUCTION MACHINE OPERATOR. PURPLE STEMI TOOL FILLED OUT.
--- NOTE | 2020-10-04 01:42 | NUR ---
PT DENING CHEST PAIN AT THIS TIME BUT HAS C/O "FEELS LIKE IM BREATHING OUT OF A STRAW"
[2020-10-04] MEDS ORDERED: FENTANYL PF 100 MCG/2ML ONE (01:49)
[2020-10-04] MEDS ORDERED: MIDAZOLAM 1 MG/ML, 5ML ONE (01:49)
[2020-10-04] MEDS ORDERED: VERAPAMIL 2.5 MG/ML, 2ML ONE (01:49)
[2020-10-04] MEDS ORDERED: TICAGRELOR 90 MG TABLET ONE (01:49)
[2020-10-04] MEDS ORDERED: NITROGLYCERIN 5 MG/ML, 10ML ONE (01:50)
[2020-10-04] MEDS ORDERED: HEPARIN 1,000 UNITS/ML, 10ML ONE (01:50)
[2020-10-04] MEDS ORDERED: BIVALIRUDIN 250 MG ONE (01:50)
[2020-10-04] MEDS ORDERED: LIDOCAINE 2%, 20ML ONE (01:50)
[2020-10-04 01:52] LABS: TROPONIN I 0.049 ng/mL (0.000-0.045)
--- NOTE | 2020-10-04 01:55 | NUR ---
pt transported to labor employment associate and report given to recieving labor employment associate RN.
[2020-10-04 01:56] LABS: INTERNATIONAL NORMALIZED RATIO 1.29 (0.93-1.1); PROTHROMBIN TIME 13.7 Seconds (9.6-11.5)
[2020-10-04] MEDS ORDERED: ADENOSINE 6 MG/2 ML ONE ×2 (02:09→02:16)
[2020-10-04] MEDS ORDERED: FUROSEMIDE 40 MG/4 ML ONE (02:23)
[2020-10-04] MEDS ORDERED: BISACODYL 10 MG SUPP PR PRN (02:30)
[2020-10-04] MEDS ORDERED: NITROGLYCERIN 0.4 MG BOTTLE (25 TABS) SL PRN (02:30)
[2020-10-04] MEDS ORDERED: hydrALAzine 20 MG/ML, 1ML IVPush PRN (02:30)
[2020-10-04] MEDS ORDERED: ONDANSETRON 2MG/ML, 2ML IVPush ONE (02:30)
[2020-10-04] MEDS ORDERED: OXYcodone IR 5MG TABLET PO PRN (02:30)
[2020-10-04] MEDS ORDERED: morphine SULFATE 10 MG/ML, 1ML IVPush PRN (02:30)
[2020-10-04] MEDS ORDERED: POLYETHYLENE GLYCOL 17 GM PACKET PO PRN (02:30)
[2020-10-04] MEDS ORDERED: ACETAMINOPHEN 325 MG TABLET PO PRN (02:30)
[2020-10-04] MEDS ORDERED: MORPHINE SULFATE 4 MG/ML, 1ML IVPush ONE (02:30)
[2020-10-04] MEDS ORDERED: DOCUSATE 100 MG CAPSULE PO PRN (02:30)
[2020-10-04] MEDS ORDERED: POTASSIUM CHLORIDE 20 MEQ TAB.ER.PRT PO ONE ×2 (03:00→07:00)
[2020-10-04] MEDS ORDERED: LORazepam 2 MG/ML, 1ML IVPush PRN (03:30)
[2020-10-04] MEDS ORDERED: LORazepam 2 MG/ML, 1ML IVPush ONE (03:30)
[2020-10-04] MEDS ORDERED: SPIR1TAB3 PO (03:38)
[2020-10-04] MEDS ORDERED: BUME1TAB21 PO (03:38)
[2020-10-04 04:04] VITALS: BP 132/90
[2020-10-04 04:21] LABS: BASOPHILS % (AUTO) 1 % (0-1); EOSINOPHILS % (AUTO) 1 % (1-7); LYMPHOCYTES % (AUTO) 14 % (22-44); MEAN CORPUSCULAR HEMOGLOBIN 30.6 pg (27.5-34.5); MEAN CORPUSCULAR HGB CONC 33.6 g/dL (33.2-36.2); MEAN PLATELET VOLUME 8.8 fL (7.4-10.4); MONOCYTES % (AUTO) 9 % (2-9); NEUTROPHILS % (AUTO) 76 % (42-75); PLATELET COUNT 305 x10^3/uL (130-400); RED BLOOD COUNT 5.19 x10^6/uL (4.38-5.82); RED CELL DISTRIBUTION WIDTH 14.5 % (9.4-14.8)
[2020-10-04 04:23] LABS: MD NO
[2020-10-04 04:34] LABS: ALANINE AMINOTRANSFERASE 105 U/L (12-78); ALBUMIN 3.3 g/dL (3.4-5.0); ANION GAP 10 mmol/L (5-15); CALCIUM 7.9 mg/dL (8.5-10.1); CHLORIDE 105 mmol/L (98-107); CHOLESTEROL, TOTAL 91 mg/dL (140-239)
[2020-10-04 04:42] LABS: ALKALINE PHOSPHATASE 121 U/L (45-117); BILIRUBIN,TOTAL 1.1 mg/dL (0.2-1.0); CHOL/HDL RATIO 2.8; HDL CHOL % 35 % (26-37); HDL CHOLESTEROL (DIRECT) 32 mg/dL (40-60); LDL CHOLESTEROL,CALCULATED 36 mg/dL (54-169); LDL/HDL RATIO 1.1 (0.5-3.0); TOTAL PROTEIN 7.2 g/dL (6.4-8.2); TRIGLYCERIDES 115 mg/dL (50-200); VLDL CHOLESTEROL 23 mg/dL (0-25)
[2020-10-04] MEDS ORDERED: METOPROLOL SUCCINATE 25 MG TAB.ER.24H PO SCH (06:00)
[2020-10-04] MEDS ORDERED: ASPIRIN 325 MG TABLET EC PO SCH (06:00)
[2020-10-04] MEDS ORDERED: INSULIN LISPRO 100 UNITS/ML, PEN SQ-INSULIN SCH (07:00)
[2020-10-04 07:27] LABS: FREE T4 (FREE THYROXINE) 1.08 ng/dL (0.76-1.46)
[2020-10-04] MEDS ORDERED: FUROSEMIDE 40 MG/4 ML IV SCH (07:30)
[2020-10-04] MEDS: FENOFIBRATE 145 MG TABLET PO SCH (07:39)
[2020-10-04] MEDS: INSULIN LISPRO 100 UNITS/ML, PEN SQ-INSULIN SCH ×4 (07:40→20:42)
[2020-10-04] MEDS: FUROSEMIDE 40 MG/4 ML IV SCH ×2 (07:41→16:53)
[2020-10-04] MEDS ORDERED: metFORMIN 500 MG TABLET PO SCH (08:00)
[2020-10-04] MEDS ORDERED: POTASSIUM CHLORIDE 20 MEQ TAB.ER.PRT PO SCH (08:00)
[2020-10-04] MEDS ORDERED: CLOPIDOGREL 75 MG TABLET PO SCH (09:00)
[2020-10-04] MEDS ORDERED: LISINOPRIL 5 MG TABLET PO SCH (09:00)
[2020-10-04 10:08] LABS: TROPONIN I 0.073 ng/mL (0.000-0.045)
[2020-10-04] MEDS ORDERED: PROPOFOL 100 ML IV ONE (10:44)
[2020-10-04] MEDS ORDERED: DOBUTAMINE 500 MG in DEXTROSE 5% 210 ML IV SCH (14:02)
[2020-10-04] MEDS ORDERED: DEXTROSE 50%, 50ML SYRINGE ONE (14:08)
[2020-10-04] MEDS: MIDAZOLAM HCL 50 MG in SODIUM CHLORIDE 0.9% 40 ML IV SCH ×2 (14:10→18:09)
[2020-10-04] MEDS ORDERED: DEXTROSE 50%, 50ML SYRINGE IVPush PRN (14:30)
[2020-10-04] MEDS ORDERED: MIDODRINE 5 MG TABLET PO SCH (16:00)
[2020-10-04] MEDS ORDERED: NOREPINEPHRINE 32 MG in SODIUM CHLORIDE 0.9% 218 ML IV SCH (16:24)
[2020-10-04] MEDS ORDERED: RIVAROXABAN 20 MG TABLET PO SCH (16:30)
[2020-10-04] MEDS ORDERED: FENTANYL PF 100 MCG/2ML IVPush PRN (20:00)
[2020-10-04] MEDS ORDERED: ASPIRIN 325 MG TABLET PO SCH (20:02)
[2020-10-04] MEDS ORDERED: ATORVASTATIN 80 MG TABLET PO SCH (21:00)
[2020-10-05] MEDS: MIDAZOLAM HCL 50 MG in SODIUM CHLORIDE 0.9% 40 ML IV SCH (00:01)
[2020-10-05] MEDS: INSULIN LISPRO 100 UNITS/ML, PEN SQ-INSULIN SCH ×3 (02:50→16:19)
[2020-10-05 04:10] LABS: BASOPHILS % (AUTO) 1 % (0-1); EOSINOPHILS % (AUTO) 0 % (1-7); LYMPHOCYTES % (AUTO) 7 % (22-44); MEAN CORPUSCULAR HEMOGLOBIN 30.8 pg (27.5-34.5); MEAN CORPUSCULAR HGB CONC 33.5 g/dL (33.2-36.2); MEAN PLATELET VOLUME 9.1 fL (7.4-10.4); MONOCYTES % (AUTO) 7 % (2-9); NEUTROPHILS % (AUTO) 85 % (42-75); PLATELET COUNT 321 x10^3/uL (130-400); RED BLOOD COUNT 5.03 x10^6/uL (4.38-5.82); RED CELL DISTRIBUTION WIDTH 14.8 % (9.4-14.8)
[2020-10-05 04:21] LABS: ANION GAP 12 mmol/L (5-15); CALCIUM 7.4 mg/dL (8.5-10.1); CHLORIDE 102 mmol/L (98-107); CREATININE 4.36 mg/dL (0.7-1.3)
[2020-10-05 04:45] LABS: MD SCAN
[2020-10-05] MEDS: PROPOFOL 100 ML IV PRN ×3 (05:33→16:09)
[2020-10-05 05:34] VITALS: BP 91/62
[2020-10-05] MEDS ORDERED: METOPROLOL TARTRATE 25 MG TAB PO SCH (06:00)
[2020-10-05] MEDS ORDERED: PANTOPRAZOLE 40 MG IV IVPush SCH (08:19)
[2020-10-05] MEDS: FENOFIBRATE 145 MG TABLET PO SCH (09:47)
[2020-10-05] MEDS ORDERED: ATROPINE OPHTH SOLN 1%, 5ML PO PRN (20:00)
[2020-10-05] MEDS ORDERED: MORPHINE SULFATE 4 MG/ML, 1ML IVPush PRN (20:00)
[2020-10-05] MEDS ORDERED: LORazepam 2 MG/ML, 1ML IV ONE (20:00)
[2020-10-05] MEDS ORDERED: MORPHINE SULFATE 4 MG/ML, 1ML IV ONE (20:00)
[2020-10-05] MEDS ORDERED: LORazepam 2 MG/ML, 1ML IVPush PRN (20:00)
[2020-10-05] MEDS ORDERED: MORPHINE 30MG/30ML PCA.SYR IV PRN (20:00)
== END 2020-10-05 21:45 | disposition expired ==
LOC: ED 02:00 → EDIP 02:37 → CCU 02:44
PROVIDERS: ADMIT Internal Medicine; ATTEND Internal Medicine
PROC: 4A023N7 Measurement of Cardiac Sampling and Pressure, Left Heart, Percutaneous Approach (ICD-10-PCS; principal; 2020-10-04)
PROC: B2111ZZ Fluoroscopy of Multiple Coronary Arteries using Low Osmolar Contrast (ICD-10-PCS; 2020-10-04)
PROC: 5A09357 Assistance with Respiratory Ventilation, Less than 24 Consecutive Hours, Continuous Positive Airway Pressure (ICD-10-PCS; 2020-10-04)
PROC: 5A1945Z Respiratory Ventilation, 24-96 Consecutive Hours (ICD-10-PCS; 2020-10-04)
PROC: 0BH17EZ Insertion of Endotracheal Airway into Trachea, Via Natural or Artificial Opening (ICD-10-PCS; 2020-10-04)
PROC: 02HV33Z Insertion of Infusion Device into Superior Vena Cava, Percutaneous Approach (ICD-10-PCS; 2020-10-04)
PROC: B548ZZA Ultrasonography of Superior Vena Cava, Guidance (ICD-10-PCS; 2020-10-04)
DX: I21.19 ST elevation (STEMI) myocardial infarction involving other coronary artery of inferior wall (principal); I50.23 Acute on chronic systolic (congestive) heart failure; J96.01 Acute respiratory failure with hypoxia; N17.0 Acute kidney failure with tubular necrosis; B17.9 Acute viral hepatitis, unspecified; I13.0 Hypertensive heart and chronic kidney disease with heart failure and stage 1 through stage 4 chronic kidney disease, or unspecified chronic kidney disease; R57.9 Shock, unspecified; D72.829 Elevated white blood cell count, unspecified; Z20.822 Contact with and (suspected) exposure to COVID-19; E03.9 Hypothyroidism, unspecified; E11.22 Type 2 diabetes mellitus with diabetic chronic kidney disease; E66.9 Obesity, unspecified; E78.5 Hyperlipidemia, unspecified; F41.9 Anxiety disorder, unspecified; I25.10 Atherosclerotic heart disease of native coronary artery without angina pectoris; M1A.9XX0 Chronic gout, unspecified, without tophus (tophi); N18.9 Chronic kidney disease, unspecified; R00.0 Tachycardia, unspecified; I25.5 Ischemic cardiomyopathy; Z68.37 Body mass index [BMI] 37.0-37.9, adult; Z83.3 Family history of diabetes mellitus; Z95.5 Presence of coronary angioplasty implant and graft; Z90.49 Acquired absence of other specified parts of digestive tract; Z72.89 Other problems related to lifestyle
CPT/HCPCS: 36415; 36600; 93454; 99291; C8929; J3490; 36573; 71045; 80047; 80048; 80053; 80061; 82803; 82962; 83036; 83735; 84100; 84439; 84443; 84481; 84484; 85025; 85610; 85730; 87070; 87081; 87205; 87635; 93005; 94002; 94003; 94660; 99156; 99157; C1760; C1769; C1894; G0378; J0153; J0583; J1644; J1940; J2250; J2405; J2704; J3010; J7060; Q9957; C1751; C9113; J1250; J1815; J2060; J2270; J7050; Q9967